=== PATIENT | male | born 1990 | race American Indian/Alaskan Native ===

== ENCOUNTER 2017-06-30 10:57 | Emergency (ER) | payer OTHER ==
--- NOTE | 2017-06-30 12:11 | Cat Scan Report ---
CT HEAD WITHOUT CONTRAST: 06/30/17 10:57:00 CLINICAL: Headache and vomiting. TECHNIQUE: 2.5-mm noncontrast scans. COMPARISON:None FINDINGS: The ventricles and sulci are normal for age. No abnormal density. No mass or mass effect. No hemorrhage, edema or extra-axial collection. The sinuses are clear. Normal orbits and soft tissues. The calvarium and skull base are intact. IMPRESSION: Normal head CT.
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
[2017-06-30 13:58] VITALS: BP 122/70
== END 2017-06-30 13:59 | disposition home or self-care (01) ==
LOC: ED 10:57
DX: G44.319 Acute post-traumatic headache, not intractable (principal); R11.2 Nausea with vomiting, unspecified; Z72.0 Tobacco use; V49.59XA Passenger injured in collision with other motor vehicles in traffic accident, initial encounter; Y93.89 Activity, other specified; Y99.9 Unspecified external cause status; Y92.410 Unspecified street and highway as the place of occurrence of the external cause
CPT/HCPCS: 70450